=== PATIENT | female | born 1955 | race Two or more races ===

== ENCOUNTER 2020-02-01 21:42 | Inpatient (IN) | payer OTHER ==
[~2020-02-01] VITALS: Ht 165.1 cm; Wt 59.6 kg
[2020-02-01] MEDS ORDERED: ONDANSETRON 2MG/ML, 2ML IVPush ONE (22:00)
[2020-02-01] MEDS ORDERED: SODIUM CHLORIDE 0.9% 1,000 ML IV ONE (22:00)
[2020-02-01] MEDS ORDERED: ONDANSETRON 2MG/ML, 2ML ONE (22:10)
--- NOTE | 2020-02-01 22:53 | NUR ---
FIRST CONTACT WITH PT REPORT FROM MATT WELLS IN NAD AWAITING ADMIT
[2020-02-02 00:02] VITALS: BP 108/50
[2020-02-02] MEDS ORDERED: MELATONIN 5 MG TABLET PO PRN (02:30)
[2020-02-02] MEDS ORDERED: DOCUSATE 100 MG CAPSULE PO PRN (02:30)
[2020-02-02] MEDS ORDERED: ONDANSETRON 2MG/ML, 2ML IVPush PRN ×2 (02:30→14:00)
[2020-02-02] MEDS ORDERED: ACETAMINOPHEN 325 MG TABLET PO PRN ×2 (02:30→14:00)
[2020-02-02 03:18] VITALS: BP 97/50
[2020-02-02] MEDS: PIPERACILLIN/TAZO/PMX 3.375GM 50 ML IV SCH ×3 (04:00→19:38)
[2020-02-02 07:38] VITALS: BP 105/55
[2020-02-02 12:42] VITALS: BP 113/74
[2020-02-02] MEDS ORDERED: FENTANYL PF 100 MCG/2ML ONE ×2 (13:41→15:24)
[2020-02-02] MEDS ORDERED: MIDAZOLAM 1 MG/ML, 2ML ONE (13:42)
[2020-02-02] MEDS ORDERED: CHLORHEXIDINE 15 ML UDC ONE (13:48)
[2020-02-02] MEDS ORDERED: FENTANYL PF 100 MCG/2ML IV PRN (14:00)
[2020-02-02] MEDS ORDERED: LABETALOL 5MG/ML, 20ML IV PRN (14:00)
[2020-02-02] MEDS ORDERED: EPHEDRINE 50 MG/ML, 1ML IVPush PRN (14:00)
[2020-02-02] MEDS ORDERED: HYDROmorphone 1 MG/ML, 1ML INJ IVPush PRN (14:00)
[2020-02-02] MEDS ORDERED: PROMETHAZINE 25 MG/ML, 1ML IVPush PRN (14:00)
[2020-02-02] MEDS ORDERED: CHLORHEXIDINE 15 ML UDC MM ONE (14:00)
[2020-02-02] MEDS ORDERED: hydrALAzine 20 MG/ML, 1ML IV PRN (14:00)
[2020-02-02] MEDS ORDERED: OXYcodone 5 MG/5 ML ORAL.SOL UDC PO PRN (14:00)
[2020-02-02] MEDS ORDERED: KETOROLAC 30 MG/1 ML ONE (14:45)
[2020-02-02] MEDS ORDERED: PROPOFOL 10 MG/ML, 20ML ONE (14:45)
[2020-02-02] MEDS ORDERED: SUCCINYLCHOLINE 20 MG/ML, 10ML ONE (14:45)
[2020-02-02] MEDS ORDERED: DEXAMETHASONE 4 MG/ML, 1ML ONE (14:45)
[2020-02-02] MEDS ORDERED: ONDANSETRON 2MG/ML, 2ML ONE (14:45)
[2020-02-02] MEDS ORDERED: LIDOCAINE-MPF 2% ,5ML ONE (14:57)
[2020-02-02] MEDS ORDERED: EPHEDRINE 50 MG/ML, 1ML ONE (15:06)
[2020-02-02] MEDS ORDERED: INDOMETHACIN 50 MG SUPP.RECT ONE (15:52)
[2020-02-02] MEDS ORDERED: INDOMETHACIN 50 MG SUPP.RECT PR ONE (16:30)
[2020-02-02] MEDS ORDERED: OMNIPAQUE 350 MG/ML, 50 ML BOTTLE ONE (16:30)
[2020-02-02 18:58] VITALS: BP 105/57
[2020-02-03 01:25] VITALS: BP 96/60
[2020-02-03] MEDS: PIPERACILLIN/TAZO/PMX 3.375GM 50 ML IV SCH ×3 (03:49→19:14)
[2020-02-03 05:46] LABS: BASOPHILS % (AUTO) 0 % (0-1); EOSINOPHILS % (AUTO) 0 % (1-7); LYMPHOCYTES % (AUTO) 9 % (22-44); MEAN CORPUSCULAR HGB CONC 33.2 g/dL (32.4-35.8); MEAN PLATELET VOLUME 8.4 fL (7.4-10.4); MONOCYTES % (AUTO) 5 % (2-9); NEUTROPHILS % (AUTO) 86 % (42-75); PLATELET COUNT 206 x10^3/uL (130-400); RED BLOOD COUNT 4.43 x10^6/uL (3.82-5.3)
[2020-02-03 05:51] LABS: MD NO
[2020-02-03 06:00] LABS: ALBUMIN 2.5 g/dL (3.4-5.0); ANION GAP 8 mmol/L (5-15); CALCIUM 8.6 mg/dL (8.5-10.1); CHLORIDE 113 mmol/L (98-107)
[2020-02-03 06:04] LABS: ALANINE AMINOTRANSFERASE 171 U/L (12-78); ALKALINE PHOSPHATASE 160 U/L (45-117); BILIRUBIN,TOTAL 5.1 mg/dL (0.2-1.0); CREATININE 0.54 mg/dL (0.55-1.02); TOTAL PROTEIN 6.3 g/dL (6.4-8.2)
[2020-02-03 07:32] VITALS: BP 96/52
[2020-02-03] MEDS ORDERED: BUPIVACAINE/PF 0.25% ONE (13:31)
[2020-02-03] MEDS ORDERED: EPINEPHRINE 1 MG/ML, 1ML ONE (13:31)
[2020-02-03] MEDS ORDERED: MIDAZOLAM 1 MG/ML, 2ML ONE (13:53)
[2020-02-03] MEDS ORDERED: FENTANYL PF 250 MCG/5ML ONE (13:54)
[2020-02-03] MEDS ORDERED: SUCCINYLCHOLINE 20 MG/ML, 10ML ONE (13:55)
[2020-02-03] MEDS ORDERED: ROCURONIUM 10MG/ML,5ML ONE (13:55)
[2020-02-03] MEDS ORDERED: CHLORHEXIDINE 15 ML UDC ONE (14:06)
[2020-02-03] MEDS ORDERED: CEFAZOLIN 1,000 MG ONE (14:22)
[2020-02-03] MEDS ORDERED: EPHEDRINE 50 MG/ML, 1ML ONE (14:22)
[2020-02-03] MEDS ORDERED: SUGAMMADEX 200 MG/2 ML IVPush ONE (14:22)
[2020-02-03] MEDS ORDERED: PROPOFOL 10 MG/ML, 20ML ONE (14:22)
[2020-02-03] MEDS ORDERED: DEXAMETHASONE 4 MG/ML, 1ML ONE (14:22)
[2020-02-03] MEDS ORDERED: ONDANSETRON 2MG/ML, 2ML ONE (14:22)
[2020-02-03] MEDS ORDERED: CHLORHEXIDINE 15 ML UDC MM ONE (14:30)
[2020-02-03] MEDS ORDERED: OXYcodone 5 MG/5 ML ORAL.SOL UDC ONE (16:08)
[2020-02-03] MEDS ORDERED: FENTANYL PF 100 MCG/2ML ONE (16:08)
[2020-02-03] MEDS: FENTANYL PF 100 MCG/2ML IV PRN ×3 (16:10→16:21)
[2020-02-03] MEDS ORDERED: OXYcodone 5 MG/5 ML ORAL.SOL UDC PO PRN (16:30)
[2020-02-03 17:01] VITALS: BP 106/64
[2020-02-03] MEDS: morphine SULFATE 10 MG/ML, 1ML IVPush PRN ×3 (17:17→21:11)
[2020-02-03] MEDS: HYDROcodone/APAP 5/325 TABLET PO PRN (18:17)
[2020-02-03 18:58] VITALS: BP 141/70
[2020-02-04 00:06] VITALS: BP 125/75
[2020-02-04] MEDS: HYDROcodone/APAP 5/325 TABLET PO PRN (01:01)
[2020-02-04] MEDS: morphine SULFATE 10 MG/ML, 1ML IVPush PRN ×2 (02:56→11:00)
[2020-02-04] MEDS: PIPERACILLIN/TAZO/PMX 3.375GM 50 ML IV SCH ×3 (03:38→20:00)
[2020-02-04 04:34] VITALS: BP 124/70
[2020-02-04 06:56] VITALS: BP 103/67
[2020-02-04 07:37] LABS: ALBUMIN 2.7 g/dL (3.4-5.0); ANION GAP 6 mmol/L (5-15); CALCIUM 8.4 mg/dL (8.5-10.1); CHLORIDE 109 mmol/L (98-107)
[2020-02-04 07:39] LABS: ALANINE AMINOTRANSFERASE 162 U/L (12-78); ALKALINE PHOSPHATASE 147 U/L (45-117); BILIRUBIN,TOTAL 3.6 mg/dL (0.2-1.0); CREATININE 0.51 mg/dL (0.55-1.02); TOTAL PROTEIN 6.8 g/dL (6.4-8.2)
[2020-02-04 07:41] LABS: BASOPHILS % (AUTO) 0 % (0-1); EOSINOPHILS % (AUTO) 0 % (1-7); LYMPHOCYTES % (AUTO) 7 % (22-44); MEAN CORPUSCULAR HEMOGLOBIN 29.4 pg (27.0-34.8); MEAN CORPUSCULAR HGB CONC 33.8 g/dL (32.4-35.8); MONOCYTES % (AUTO) 7 % (2-9); NEUTROPHILS % (AUTO) 86 % (42-75); PLATELET COUNT 271 x10^3/uL (130-400); RED BLOOD COUNT 4.69 x10^6/uL (3.82-5.3); RED CELL DISTRIBUTION WIDTH 15.2 % (9.6-15.2)
[2020-02-04 07:47] LABS: MD NO
[2020-02-04] MEDS ORDERED: HYDR-3237 PO (08:16)
[2020-02-04] MEDS ORDERED: FENTANYL PF 100 MCG/2ML IV PRN (12:00)
[2020-02-04] MEDS ORDERED: ONDANSETRON 2MG/ML, 2ML IVPush PRN (12:00)
[2020-02-04] MEDS ORDERED: LABETALOL 5MG/ML, 20ML IV PRN (12:00)
[2020-02-04] MEDS ORDERED: EPHEDRINE 50 MG/ML, 1ML IVPush PRN (12:00)
[2020-02-04] MEDS ORDERED: PROMETHAZINE 25 MG/ML, 1ML IVPush PRN (12:00)
[2020-02-04] MEDS ORDERED: HYDROmorphone 1 MG/ML, 1ML INJ IVPush PRN (12:00)
[2020-02-04] MEDS ORDERED: hydrALAzine 20 MG/ML, 1ML IV PRN (12:00)
[2020-02-04] MEDS ORDERED: ACETAMINOPHEN 325 MG TABLET PO PRN (12:00)
[2020-02-04] MEDS ORDERED: OXYcodone 5 MG/5 ML ORAL.SOL UDC PO PRN (12:00)
[2020-02-04] MEDS ORDERED: MEPERIDINE/PF 25MG/0.5ML IVPush PRN (12:00)
[2020-02-04] MEDS ORDERED: SUCRALFATE 1 GM/10 ML UDC PO PRN (12:30)
[2020-02-04] MEDS ORDERED: SUCRALFATE 1 GM TABLET PO PRN (12:30)
[2020-02-04 12:43] VITALS: BP 104/47
[2020-02-04] MEDS ORDERED: EPINEPHRINE 1 MG/ML, 1ML ONE (13:31)
[2020-02-04] MEDS ORDERED: BUPIVACAINE/PF 0.5% ONE (13:31)
[2020-02-04] MEDS ORDERED: CHLORHEXIDINE 15 ML UDC ONE (13:33)
[2020-02-04] MEDS ORDERED: MIDAZOLAM 1 MG/ML, 2ML ONE (13:51)
[2020-02-04] MEDS ORDERED: FENTANYL PF 100 MCG/2ML ONE (13:52)
[2020-02-04] MEDS ORDERED: CHLORHEXIDINE 15 ML UDC MM ONE (14:00)
[2020-02-04] MEDS ORDERED: KETOROLAC 30 MG/1 ML ONE (14:19)
[2020-02-04] MEDS ORDERED: SUGAMMADEX 200 MG/2 ML IVPush ONE (14:20)
[2020-02-04] MEDS ORDERED: LIDOCAINE-MPF 2% ,5ML ONE (14:20)
[2020-02-04] MEDS ORDERED: ONDANSETRON 2MG/ML, 2ML ONE (14:20)
[2020-02-04] MEDS ORDERED: ROCURONIUM 10MG/ML,5ML ONE (14:20)
[2020-02-04] MEDS ORDERED: PROPOFOL 10 MG/ML, 20ML ONE (14:20)
[2020-02-04] MEDS ORDERED: SUCCINYLCHOLINE 20 MG/ML, 10ML ONE (14:20)
[2020-02-04 18:53] VITALS: BP 104/61
[2020-02-04] MEDS ORDERED: FAMOTIDINE 40 MG TABLET ONE (19:57)
[2020-02-04] MEDS: FAMOTIDINE 20 MG TABLET PO SCH (21:00)
[2020-02-05 00:20] VITALS: BP 103/64
[2020-02-05] MEDS: PIPERACILLIN/TAZO/PMX 3.375GM 50 ML IV SCH ×3 (03:54→19:59)
[2020-02-05 06:10] LABS: BASOPHILS % (AUTO) 0 % (0-1); EOSINOPHILS % (AUTO) 0 % (1-7); LYMPHOCYTES % (AUTO) 13 % (22-44); MEAN CORPUSCULAR HEMOGLOBIN 29.4 pg (27.0-34.8); MEAN CORPUSCULAR HGB CONC 33.8 g/dL (32.4-35.8); MEAN PLATELET VOLUME 8.4 fL (7.4-10.4); MONOCYTES % (AUTO) 8 % (2-9); NEUTROPHILS % (AUTO) 79 % (42-75); PLATELET COUNT 232 x10^3/uL (130-400); RED BLOOD COUNT 4.33 x10^6/uL (3.82-5.3)
[2020-02-05 06:14] LABS: MD NO
[2020-02-05 06:26] VITALS: BP 95/54
[2020-02-05 06:28] LABS: CALCIUM 8.1 mg/dL (8.5-10.1); CHLORIDE 110 mmol/L (98-107)
[2020-02-05 06:34] LABS: ALANINE AMINOTRANSFERASE 103 U/L (12-78); ALBUMIN 2.2 g/dL (3.4-5.0); ALKALINE PHOSPHATASE 109 U/L (45-117); ANION GAP 5 mmol/L (5-15); BILIRUBIN,TOTAL 2.7 mg/dL (0.2-1.0); CREATININE 0.36 mg/dL (0.55-1.02); TOTAL PROTEIN 5.9 g/dL (6.4-8.2)
[2020-02-05] MEDS ORDERED: FAMOTIDINE 40 MG TABLET ONE (09:10)
[2020-02-05] MEDS: FAMOTIDINE 20 MG TABLET PO SCH ×2 (09:13→22:23)
[2020-02-05] MEDS ORDERED: OMNIPAQUE 350 MG/ML, 100ML BOTTLE ONE (10:07)
[2020-02-05 13:53] VITALS: BP 92/57
[2020-02-05 19:52] VITALS: BP 101/49
[2020-02-06 01:41] VITALS: BP 108/64
[2020-02-06] MEDS: PIPERACILLIN/TAZO/PMX 3.375GM 50 ML IV SCH ×3 (03:56→20:06)
[2020-02-06 05:39] LABS: ALANINE AMINOTRANSFERASE 75 U/L (12-78); ANION GAP 4 mmol/L (5-15); CALCIUM 7.6 mg/dL (8.5-10.1); CHLORIDE 110 mmol/L (98-107)
[2020-02-06 05:42] LABS: ALKALINE PHOSPHATASE 95 U/L (45-117); BILIRUBIN,TOTAL 1.9 mg/dL (0.2-1.0); CREATININE 0.32 mg/dL (0.55-1.02); TOTAL PROTEIN 5.5 g/dL (6.4-8.2)
[2020-02-06 05:57] LABS: BASOPHILS % (AUTO) 1 % (0-1); EOSINOPHILS % (AUTO) 1 % (1-7); LYMPHOCYTES % (AUTO) 22 % (22-44); MEAN CORPUSCULAR HEMOGLOBIN 29.1 pg (27.0-34.8); MEAN CORPUSCULAR HGB CONC 33.2 g/dL (32.4-35.8); MEAN PLATELET VOLUME 8.7 fL (7.4-10.4); MONOCYTES % (AUTO) 9 % (2-9); NEUTROPHILS % (AUTO) 68 % (42-75); PLATELET COUNT 203 x10^3/uL (130-400); RED BLOOD COUNT 4.19 x10^6/uL (3.82-5.3); RED CELL DISTRIBUTION WIDTH 14.7 % (9.6-15.2)
[2020-02-06 06:15] LABS: MD NO
[2020-02-06 06:48] VITALS: BP 106/59
[2020-02-06] MEDS: FAMOTIDINE 20 MG TABLET PO SCH ×2 (09:00→20:06)
[2020-02-06] MEDS ORDERED: FAMOTIDINE 40 MG TABLET ONE (09:04)
[2020-02-06] MEDS ORDERED: POLYETHYLENE GLYCOL 17 GM PACKET NG PRN (14:00)
[2020-02-06 14:18] VITALS: BP 103/65
[2020-02-06 19:49] VITALS: BP 110/57
[2020-02-07 01:28] VITALS: BP 111/68
[2020-02-07] MEDS: PIPERACILLIN/TAZO/PMX 3.375GM 50 ML IV SCH ×2 (04:13→12:08)
[2020-02-07 06:52] LABS: BASOPHILS % (AUTO) 1 % (0-1); EOSINOPHILS % (AUTO) 3 % (1-7); LYMPHOCYTES % (AUTO) 20 % (22-44); MEAN CORPUSCULAR HEMOGLOBIN 29.1 pg (27.0-34.8); MEAN CORPUSCULAR HGB CONC 33.4 g/dL (32.4-35.8); MEAN PLATELET VOLUME 8.4 fL (7.4-10.4); MONOCYTES % (AUTO) 7 % (2-9); NEUTROPHILS % (AUTO) 69 % (42-75); PLATELET COUNT 267 x10^3/uL (130-400); RED BLOOD COUNT 4.28 x10^6/uL (3.82-5.3); RED CELL DISTRIBUTION WIDTH 14.9 % (9.6-15.2)
[2020-02-07 07:00] LABS: ALBUMIN 2.2 g/dL (3.4-5.0); ANION GAP 7 mmol/L (5-15); CALCIUM 7.8 mg/dL (8.5-10.1); CHLORIDE 110 mmol/L (98-107)
[2020-02-07 07:03] LABS: ALANINE AMINOTRANSFERASE 65 U/L (12-78); ALKALINE PHOSPHATASE 99 U/L (45-117); BILIRUBIN,TOTAL 1.5 mg/dL (0.2-1.0); CREATININE 0.38 mg/dL (0.55-1.02); TOTAL PROTEIN 5.7 g/dL (6.4-8.2)
[2020-02-07 07:08] LABS: MD NO
[2020-02-07 08:30] VITALS: BP 104/61
[2020-02-07] MEDS: FAMOTIDINE 20 MG TABLET PO SCH (10:22)
[2020-02-07 12:43] VITALS: BP 107/62
== END 2020-02-07 15:11 | disposition home or self-care (01) | DRG 357 ==
LOC: ED 22:22 → EDIP 23:16 → 4NW 23:58 → DCLOUNGE 02-07 14:53
PROVIDERS: ADMIT Family Medicine; ATTEND Hospitalist
PROC: 0F798DZ Dilation of Common Bile Duct with Intraluminal Device, Via Natural or Artificial Opening Endoscopic (ICD-10-PCS; 2020-02-02)
PROC: 0F7D8DZ Dilation of Pancreatic Duct with Intraluminal Device, Via Natural or Artificial Opening Endoscopic (ICD-10-PCS; 2020-02-02)
PROC: 0FC98ZZ Extirpation of Matter from Common Bile Duct, Via Natural or Artificial Opening Endoscopic (ICD-10-PCS; 2020-02-02)
PROC: 0FT44ZZ Resection of Gallbladder, Percutaneous Endoscopic Approach (ICD-10-PCS; 2020-02-04)
PROC: 0FJB0ZZ Inspection of Hepatobiliary Duct, Open Approach (ICD-10-PCS; 2020-02-04)
PROC: 3E1M38Z Irrigation of Peritoneal Cavity using Irrigating Substance, Percutaneous Approach (ICD-10-PCS; principal; 2020-02-04 14:00)
DX: K65.3 Choleperitonitis (principal); K80.31 Calculus of bile duct with cholangitis, unspecified, with obstruction; R18.8 Other ascites; Z20.828 Contact with and (suspected) exposure to other viral communicable diseases; F17.210 Nicotine dependence, cigarettes, uncomplicated; K57.10 Diverticulosis of small intestine without perforation or abscess without bleeding; K80.70 Calculus of gallbladder and bile duct without cholecystitis without obstruction; D72.829 Elevated white blood cell count, unspecified; E80.6 Other disorders of bilirubin metabolism; Z90.49 Acquired absence of other specified parts of digestive tract; Z79.899 Other long term (current) drug therapy
CPT/HCPCS: 36415; 74328; 96374; 99285; J3490; S0020; 74177; 80053; 82962; 85025; 87635; 88304; 93005; C1729; G0378; J0171; J0690; J1100; J1885; J2250; J2405; J2543; J2704; J3010; Q9967; C1769; C1894; C2625; J0330; J2270; J7030

== ENCOUNTER → 2020-02-15 | Outpatient (CLI) | payer OTHER ==
[~2020-02-15] MED LIST: HYDR-3237 PO
== END | disposition home or self-care (01) ==
LOC: RAD 14:12
PROVIDERS: ATTEND Internal Medicine Gastroenterology
DX: K80.71 Calculus of gallbladder and bile duct without cholecystitis with obstruction (principal); K83.8 Other specified diseases of biliary tract; J98.11 Atelectasis
CPT/HCPCS: 74018